=== PATIENT | male | born 1960 | race Caucasian/White ===

== ENCOUNTER → 2024-03-29 | Outpatient (BNVA) | payer BC, SELFPAY | END | disposition home or self-care (01) | PROVIDERS: PCP Psychiatry & Neurology Neurology; Referring Provider Psychiatry & Neurology Neurology; Visit Provider Urology | DX: C61 Malignant neoplasm of prostate (principal); N52.9 Male erectile dysfunction, unspecified; N20.0 Calculus of kidney; E11.9 Type 2 diabetes mellitus without complications; I10 Essential (primary) hypertension; E78.00 Pure hypercholesterolemia, unspecified | CPT/HCPCS: 81003; 99212; G0463 ==

== ENCOUNTER → 2024-05-05 | Outpatient (CLI) | payer BC, SELFPAY ==
--- NOTE | 2024-05-05 10:30 | XR_ITS ---
Examination: CT abdomen and pelvis without contrast. Coronal 3-D reconstructions. Sagittal 2-D reconstructions. Date and time of exam:May 05, 2024 at 1049 hours Comparison July 06, 2021 INDICATIONS: History kidney stones beginning 2 years ago, flank pain CTDI: vol (mGy): 9.64 DLP: (mGycm): 605 Technique: Axial images of the abdomen have been obtained, 3 mm slice thickness Intravenous contrast material has not been administered. Low dose protocols were performed. One or more of the following dose reduction techniques were used; automated exposure control, adjustment of the mA and/or KV according to patient size, use of iterative reconstruction technique. Findings: No focal liver or splenic lesions No gallstones No pancreatic mass Perinephric stranding Right renal calculi, the largest is a staghorn calculus posterior right kidney 13 mm No hydronephrosis or ureteral calculi Aorta normal size Normal appendix Colonic diverticulosis, no diverticulitis No bladder mass or bladder calculi Tiny fat-containing umbilical hernias Moderate osteopenia IMPRESSION: Right renal calculi, the largest of systolic CALCULUS POSTERIOR RIGHT KIDNEY 13 MM NO HYDRONEPHROSIS OR URETERAL CALCULI
== END | disposition home or self-care (01) ==
LOC: CCTX 10:31
PROVIDERS: Referring Provider Urology; Visit Provider Urology
DX: N20.0 Calculus of kidney (principal)
CPT/HCPCS: 74176

== ENCOUNTER → 2024-05-21 | Day surgery (SDC) | payer BC, SELFPAY ==
--- NOTE | 2024-05-19 06:50 | EKG_ITS ---
[facility] Test Date: 2024-05-19 Pat Name: CLYDE SHARIF Department: Room: - Gender: Male Speaker Mounter: ROSETTA : 1960 Requested By: Jose Juan Thurman Order Number: [id number] Reading MD: Jose Juan Thurman Measurements Intervals [place] Rate: 50 P: 56 MT: 175 QRS: 14 QRSD: 110 T: 61 QT: 416 QTc: 382 Interpretive Statements SINUS BRADYCARDIA No previous ECG available for comparison /store/S0/[id number]/ecg/[id number].pdf
[2024-05-19 07:41] VITALS: BMI 29.9
[2024-05-19 11:04] LABS: Alanine Aminotransferase 20 U/L (10-49); Albumin, Serum 4.1 gm/dL (3.4-4.8); Albumin/Globulin Ratio 1.8 (1.2-2.2); Alkaline Phosphatase 76 U/L (46-116); Anion Gap 9 (7-16); Aspartate Amino Transferase 16 U/L (0-34); BUN/Creatinine Ratio 14 Ratio (12-20); Bilirubin,Total 0.5 mg/dL (0.3-1.2); Blood Urea Nitrogen 11 mg/dL (9-23); Calcium 9.4 mg/dL (8.3-10.6); Calcium (Corrected) 9.4 mg/dL (8.5-10.1); Carbon Dioxide 29.6 mMol/L (20.0-31.0); Chloride 104 mMol/L (98-107); Creatinine (Component) 0.8 mg/dL (0.6-1.3); Estimated Creatinine Clearance 117.5 mL/min (>60); Globulin 2.3 gm/dL (2.3-3.5); Glucose 134 mg/dL (74-106); Osmolality,Calculated 286 (275-295); Potassium 3.8 mMol/L (3.4-5.1); Sodium 143 mMol/L (136-145); Total Protein 6.4 gm/dL (5.7-8.2); eGFR > 60 See Note
--- NOTE | 2024-05-19 14:42 | SUR.PREOP ---
Pt saw Dr Armstrong manager talent last yr, records requested and waiting.
[2024-05-21] VITALS (8 sets, daily range): BP systolic 142–165; BP diastolic 80–92; PULSE 57–70; RESP 14–20; TEMP 36.6–36.9; O2SAT 95–100; BMI 29.1
--- NOTE | 2024-05-21 07:09 | XR_ITS ---
Examination: Right retrograde with without KUB Fluoroscopy 4 spot fluoroscopic abdomen films Exam date and time: May 13, 2024 1413 hrs. Indications: Right renal calculi on CT stone study May 05, 2024, ureteral stone indication stent placement Technique And Findings: 4 spot fluoroscopic films abdomen Nondilated opacified calyces Fluoroscopy 57 seconds radiation dose 14.53 milligray 4 spot fluoroscopic films Impression: Retrograde study as above
[2024-05-21] MEDS: VANCOMYCIN in NS 1 GM/200 ML BAG IV (11:54)
[2024-05-21] MEDS: RINGERS LACTATED 1000 ML 1,000 ML 20 ML IV (11:55)
--- NOTE | 2024-05-21 14:15 | SUR.OPER ---
(Lucie) updated on case status/progress via phone by Allen MCKAY at approx. [phone].
--- NOTE | 2024-05-21 16:31 | SUR.PHASEI ---
Arrived to recovery [facility] via [facility]. Report received from Mo MCKAY and Dr. Dunn. Resting with eyes closed. No s/o distress or discomfort. Oral airway removed upon arrival to recovery.
--- NOTE | 2024-05-21 17:07 | SUR.PHASEII ---
C/O feeling like he needs to urinate. Assisted to standing position at bedside. Urinated pink tinged urine. No stones present.
--- NOTE | 2024-05-21 17:35 | SUR.PHASEII ---
Taken to first floor via w/c. Discharged to girlfriend
--- NOTE | 2024-05-21 20:03 | ESOP_ITS ---
RE: CLYDE SHARIF : 1960 DATE OF OPERATION: 05/21/2024 PREPROCEDURE DIAGNOSIS: A 15-mm upper pole calyceal stone, right kidney. POSTPROCEDURE DIAGNOSIS: Status post retrograde intrarenal surgery, right. PROCEDURES PERFORMED: Fluoroscopic imaging of upper urinary tract; cystoscopy; retrograde pyelogram under fluoroscopic control, right; retrograde intrarenal surgery, right with laser stone fragmentation and stone basketing x50+; and placement of indwelling ureteral stent on the right. SURGEON: Jeremias Addison MD. RECREATIONAL VEHICLE RESORT MANAGER SURGEON: Cabrera Santos MD. ANESTHESIA: General. INDICATIONS: This patient is a 63-year-old gentleman, who comes for treatment of a 15-mm impacted upper pole calyceal stone of the right kidney. The patient has recurrent right- sided flank pain and has been diagnosed with a 15-mm stone with Hounsfield unit up to 1700. We discussed with the patient the indication for treatment along with risks, benefits, and alternatives and appropriate consent for retrograde intrarenal surgery is obtained. DESCRIPTION OF FINDINGS: Fluoroscopically, the stone is readily identified overlying the lateral aspect of the upper pole of the right kidney. Endoscopically, the urethra and prostate are unremarkable. Prostate is mildly enlarged. Bladder shows mild trabeculation. Bladder mucosa is unremarkable. Retrograde pyelogram under fluoroscopic control right shows a normal ureter without signs of obstruction. The renal collecting system shows long dendritic infundibuli and the stone is identified as a filling defect in one of the upper pole calyces. Retrograde intrarenal surgery was performed with laser stone fragmentation and active stone removal with more than 50 passages of stone baskets to clear out all stone material larger 1-2 mm actively. The stent is placed. DESCRIPTION OF PROCEDURE: Prior to initiation of anesthesia, patient was appropriately identified by the surgeon and operating room personnel. The indications for surgery, site and scope of surgery are reconfirmed with the patient. The patient received preoperative antibiotics intravenously. After induction of general anesthesia, the patient was positioned on the endoscopy table in lithotomy position. The outer genitalia was prepped and draped in sterile fashion. Cystoscopy was performed using a 21-Macanese instrument. This shows the aforementioned findings. A 5-Macanese angiographic catheter was introduced into the right ureteral orifice over a guidewire. Guidewire was removed. Under fluoroscopic control, contrast was injected with the aforementioned findings. Following this, the guidewire was reintroduced under fluoroscopic control and advanced up into the kidney to serve as a safety wire. At this point, the patient received 20 mg of Lasix intravenously to induce diuresis and reduce the risk of pyelovenous reflux and infectious complications during the surgical procedure in the kidney. Next, optical dilation of the ureter was performed using a 9.5-Macanese semi-rigid instrument. This instrument was advanced over a second wire. endoscopic control without evidence for any abnormalities. Following this, a flexible digital ureteroscope was advanced up into the kidneys. Elective visualization of all calyces was performed. There are no stones or other abnormalities other than the stone completely filling the target upper pole calyx. The stone is encased by copious edema. Next, fragmentation and vaporization of the stone is performed. Following this, an attempt was made to place a ureteral access sheath as many passages of stone baskets will be necessary to clear the stone material from the kidney and the access sheath, however, is not accepted by the ureter. Therefore, stone basketing is performed with reducing the stone size of the gravel further to allow for safe passage through the ureter. More than 50 passages with different configured baskets was performed to clear out all stone material larger 1-2 mm actively from the upper tract. This completed. A contrast was again injected confirming integrity of the upper urinary tract and inflammatory stent was placed over the safety wire and under fluoroscopic and endoscopic control position correcting kidney and bladder. The patient is awakened and returned to recovery where he arrived in satisfactory condition. ESTIMATED BLOOD LOSS FROM THE PROCEDURE: Minimal. COMPLICATIONS: None. SPECIMENS: Stone material for chemical analysis. DISPOSITION: The patient will be discharged home from the outpatient surgical area. He will return to Dr. Santos's office within 2-3 weeks for renal ultrasound examination and possible removal of the indwelling ureteral stent in the office setting under local anesthesia. DT: 16:54:03 TT: 18:03:00 Ref: [id number] - TID: [id number] MTDD
--- NOTE | 2024-05-25 07:22 | SUR.OPER ---
Late Entry: No charge items brought in by [employer] Stone Basket Ref: EXN Ch/Fr 1.5 /0.5 mm Lot: [id number]
== END | disposition home or self-care (01) ==
PROVIDERS: Anesthesiology; PCP Family Medicine; Referring Provider Urology; Visit Provider Specialist
PROC: 0TJB8ZZ Inspection of Bladder, Via Natural or Artificial Opening Endoscopic (ICD-10-PCS; CPT 52000; principal; 2024-05-21 12:45)
DX: N20.0 Calculus of kidney (principal); Z01.810 Encounter for preprocedural cardiovascular examination
CPT/HCPCS: 52356; 36415; 74420; 80053; 93005; A4217; A4649; C1769; C1889; C1894; C2617; J1580; J1940; J2250; J2704; J3010; J3370; J7120; C1893

== ENCOUNTER → 2024-06-11 | Outpatient (BNVA) | payer BC, MEDICARE, SELFPAY | END | disposition home or self-care (01) | PROVIDERS: PCP Family Medicine; Referring Provider Family Medicine; Visit Provider Urology | DX: N32.89 Other specified disorders of bladder (principal); Z96.0 Presence of urogenital implants; C61 Malignant neoplasm of prostate; I10 Essential (primary) hypertension; E78.00 Pure hypercholesterolemia, unspecified; E11.9 Type 2 diabetes mellitus without complications | CPT/HCPCS: 52310; 81003; 96372; A4217; A4649; C1894; J1580; A9270 ==

== ENCOUNTER → 2024-07-07 | Outpatient (CLI) | payer MEDICARE, SELFPAY ==
--- NOTE | 2024-07-07 13:30 | XR_ITS ---
Examination: Retroperitoneal ultrasound, complete Technique: Multiple high resolution grayscale images of the retroperitoneum obtained, including kidneys and bladder. Exam date and time:July 07, 2024 1356 hours INDICATIONS: History flank pain kidney stones, post surgery to remove right renal calculus June 04, 2024 FINDINGS: Right kidney 12.6 cm renal cortex 2.2 cm Left kidney 14.5 cm cortex 1.9 cm Moderate renal parenchymal scar formation No hydronephrosis No renal calculi No bladder mass or bladder calculi Bladder prevoid volume 356 cc IMPRESSION: Moderate bilateral renal parenchymal scar formation No renal calculi No hydronephrosis
== END | disposition home or self-care (01) ==
PROVIDERS: PCP Family Medicine; Referring Provider Urology; Visit Provider Urology
DX: N28.89 Other specified disorders of kidney and ureter (principal)
CPT/HCPCS: 76770

== ENCOUNTER → 2024-10-29 | Outpatient (BNVA) | payer MEDICARE, SELFPAY | END | disposition home or self-care (01) | PROVIDERS: PCP Family Medicine; Referring Provider Family Medicine; Visit Provider Urology | DX: C61 Malignant neoplasm of prostate (principal); N52.9 Male erectile dysfunction, unspecified; N28.89 Other specified disorders of kidney and ureter; E66.9 Obesity, unspecified; Z68.29 Body mass index [BMI] 29.0-29.9, adult; I10 Essential (primary) hypertension; E78.00 Pure hypercholesterolemia, unspecified; E11.9 Type 2 diabetes mellitus without complications | CPT/HCPCS: 81003; 99212; G0463 ==